=== PATIENT | male | born 1985 | race African-American/Black ===

== ENCOUNTER 2016-11-03 16:55 | Emergency (ER) | payer OTHER ==
[~2016-11-03] VITALS: Ht 175.3 cm; Wt 102.5 kg
[~2016-11-03 16:55] MED LIST: PANTOPRAZOLE SO40 MG PO
[2016-11-03 17:28] LABS: HEMATOCRIT 45.7 % (38.0-50.0); MCH 28.3 PG (29.0-34.0); MCHC 33.3 G/DL (30.0-36.0); MCV 84.9 FL (86-99); MEAN PLAT.VOLUME 10.4 uM^3 (9.0-12.4); PLATELET COUNT 244 K/uL (156-360); RBC DIS.WIDTH-CV 13.8 % (11.8-14.6); RBC DIS.WIDTH-SD 42.7 % (39-53); RED BLOOD COUNT 5.38 M/uL (4.00-5.50); WHITE BLOOD COUNT 8.5 K/uL (4.1-10.2)
[2016-11-03 17:37] LABS: CHLORIDE 106 mEq/L (99-109); POTASSIUM 4.6 mEq/L (3.7-5.4); SODIUM 139 mEq/L (136-147)
[2016-11-03 17:38] LABS: GLUCOSE 85 mg/dL (70-99)
[2016-11-03 17:40] LABS: ANION GAP 14 MEQ/L (2-14)
[2016-11-03 17:41] LABS: SERUM ETHYL ALCOHOL 124 mg/dL
[2016-11-03 17:42] LABS: GFR ESTIMATE (CALCULATED) > 59 mL/min/
[2016-11-03 17:43] LABS: UREA NITROGEN (BUN) 13 mg/dL (9-23)
[2016-11-03 20:13] VITALS: BP 161/97
== END 2016-11-03 20:14 | disposition home or self-care (01) ==
LOC: EME → EDBD 16:55 → EME 16:55 → TRA 16:55
PROVIDERS: Emergency Medicine
DX: T07 Unspecified multiple injuries (principal); M54.2 Cervicalgia; M79.605 Pain in left leg; R51 Headache; V68.0XXA Driver of heavy transport vehicle injured in noncollision transport accident in nontraffic accident, initial encounter; F17.200 Nicotine dependence, unspecified, uncomplicated
CPT/HCPCS: 70450; 71010; 72125; 72170; 73552; 80048; 85027; 93005; 99281; 99285; G0480